=== PATIENT | female | born 1955 | race African-American/Black ===

== ENCOUNTER 2016-11-15 16:17 | Outpatient (CLI) | payer BC ==
[2016-11-15 16:46] LABS: Blood Urea Nitrogen 12 mg/dL (7-17)
--- NOTE | 2016-11-16 08:23 | Magnetic Resonance Report ---
MRI BRAIN WITH/WITHOUT CONTRAST: History: Tinnitus, ringing in right ear. Technique: Multiple T1 and T2 weighted images were obtained in multiple planes. Axial diffusion and gradient imaging was performed. Post contrast T1 images in two planes were obtained following IV gadolinium. Findings: No comparison at this facility. 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 There is moderate crowding at the foramen magnum. This is consistent with a Chiari 1 malformation. Mild periventricular chronic white matter changes are identified which appear appropriate for this persons age. This is a nonspecific finding but is most likely related to chronic microvascular disease. Otherwise, the brain parenchyma signal intensity and its thompson-white interface are normal on all sequences. No diffusion restriction, hemorrhage, mass effect or extra-axial fluid collection. Ventricular size is normal and symmetric. The basal cisterns are clear. The paranasal sinuses and mastoid air cells are well aerated. Normal flow voids are identified in the appropriate vessels at the [place]. No abnormal enhancement is identified following IV gadolinium. Thin collimation images through the internal auditory canals with and without contrast are within normal limits. No evidence for acoustic neuroma or cerebellopontine angle mass. Impression: Chiari 1 malformation. Mild nonspecific chronic white matter changes which are likely appropriate for this persons age. No evidence for acoustic neuroma or mastoid air cell disease.
== END 2016-11-15 16:18 | disposition home or self-care (01) ==
LOC: MRI 16:17
PROVIDERS: ATTEND Otolaryngology
DX: H93.11 Tinnitus, right ear (principal); H90.5 Unspecified sensorineural hearing loss; R90.82 White matter disease, unspecified; I10 Essential (primary) hypertension
CPT/HCPCS: 36415; 70553; 82565; 84520; A9577

== ENCOUNTER 2017-03-06 05:46 | Inpatient (IN) | payer BC ==
[2017-02-27 11:52] LABS: Basophils % (Auto) 1.3 % (0.0-1.8); Eosinophils % (Auto) 3.3 % (0.0-4.3); Hematocrit 39.8 % (30.3-42.9); Hemoglobin 13.7 gm/dl (10.1-14.3); Mean Corpuscular HGB Conc 34 % (30-34); Mean Corpuscular Hemoglobin 28 pg (28-32); Mean Corpuscular Volume 82 fl (79-97); Platelet Count 378 K/mm3 (140-440); Red Blood Count 4.87 M/mm3 (3.65-5.03); Red Cell Distribution Width 13.6 % (13.2-15.2); White Blood Count 5.2 K/mm3 (4.5-11.0)
--- NOTE | 2017-02-27 11:59 | Anesthesia Consultation ---
Anesthesia Consult and Med Hx Date of service: 02/27/17 - Airway Anesthetic Teeth Evaluation: Good ROM Head & Neck: Adequate Mental/Hyoid Distance: Adequate Mallampati Class: Class II Intubation Access Assessment: Probably Good - Pulmonary Exam CTA: Yes - Cardiac Exam Cardiac Exam: RRR - Pre-Operative Health Status ASA Pre-Surgery Classification: ASA3 Proposed Anesthetic Plan: Epidural, Spinal Nerve Block: adductor canal - Pulmonary Hx Smoking: No Hx Sleep Apnea: No (ABRAM PRE SCREEN LOW RISK) - Cardiovascular System Hx Hypertension: Yes (X 5 YRS) Hx Cardia Arrhythmia: Yes ("palpitations", Hx of PVCs) - Central Nervous System Hx Neuromuscular Disorder: Yes (ringing in right ear, vertigo) Hx Seizures: No CVA: No - Endocrine Hx End Stage Renal Disease: No Hx Cirrhosis: No Hx Non-Insulin Dependent Diabetes: Yes - Other Systems Hx Cancer: No Hx Obesity: Yes
[2017-02-27 12:00] LABS: INR 0.94 (0.87-1.13)
[2017-02-27 12:06] LABS: Chloride 100.7 mmol/L (98-107); Potassium 3.9 mmol/L (3.6-5.0); Sodium 140 mmol/L (137-145)
[2017-02-27 12:07] LABS: Alanine Aminotransferase 14 units/L (7-56); Albumin 4.1 g/dL (3.9-5); Alkaline Phosphatase 97 units/L (35-129); Anion Gap 18 mmol/L; BUN/Creatinine Ratio 20; Blood Urea Nitrogen 10 mg/dL (7-17); Calcium 9.5 mg/dL (8.4-10.2); Carbon Dioxide 25 mmol/L (22-30); Glucose 107 mg/dL (65-100); Total Protein 8.2 g/dL (6.3-8.2)
[~2017-03-06 05:46] MED LIST: DEPO-MEDROL INTRA-ARTI ONE; MARCAINE 0.5% INFILTRATI ONE; MARCAINE-EPI 0.5%-1:200,000 INFILTRATI ONE; MORPHINE IM ONE; NACL 0.9% IR ONE; NACL IRRIGATION ONE; NEOSPORIN GU IR ONE; TORADOL IV ONE; TRANEXAMIC ACID IV ONE; VANCOMYCIN/NS 1 GM/250 ML 1 GM/250 ML BAG IV NR
[2017-03-06] MEDS ORDERED: VERSED IV NR (06:00)
[2017-03-06] MEDS ORDERED: PEPCID PO NR (06:00)
[2017-03-06] MEDS ORDERED: NACL BACTERIOSTATIC INFILTRATI ONE (06:28)
[2017-03-06] MEDS: NACL 0.9% 1000 ML 1,000 ML IV SCH ×2 (06:35→19:53)
[2017-03-06] MEDS ORDERED: DEPO-MEDROL ONE (07:16)
--- NOTE | 2017-03-06 07:16 | Anesthesia Day of Surgery ---
Anesthesia Day of Surgery - Day of Surgery Patient Examined: Yes Patient is NPO: Yes
[2017-03-06] MEDS ORDERED: MARCAINE 0.5% INFILTRATI ONE ×3 (07:17→08:59)
[2017-03-06] MEDS ORDERED: NACL ONE (07:19)
[2017-03-06] MEDS ORDERED: NACL P/F VIAL (10 ML) 10 ML ONE (07:19)
[2017-03-06] MEDS ORDERED: NEOSPORIN GU IR ONE ×2 (07:20→08:29)
[2017-03-06] MEDS ORDERED: TORADOL ONE ×2 (07:21→09:05)
[2017-03-06] MEDS ORDERED: TRANEXAMIC ACID ONE (07:21)
[2017-03-06] MEDS ORDERED: MORPHINE ONE (07:23)
[2017-03-06 07:34] LABS: INR 0.94 (0.87-1.13)
[2017-03-06 07:35] LABS: Partial Thromboplastin Time 42.2 Sec. (24.2-36.6)
[2017-03-06] MEDS ORDERED: NEOSTIGMINE ONE (07:42)
[2017-03-06] MEDS ORDERED: DECADRON ONE ×2 (07:42→07:58)
[2017-03-06] MEDS ORDERED: ZEMURON IV ONE (07:42)
[2017-03-06] MEDS ORDERED: DIPRIVAN 10 MG/ML IV ONE (07:42)
[2017-03-06] MEDS ORDERED: SUBLIMAZE ONE (07:42)
[2017-03-06] MEDS ORDERED: ROBINUL ONE ×2 (07:42)
[2017-03-06] MEDS ORDERED: XYLOCAINE MPF 2% ONE (07:43)
[2017-03-06] MEDS ORDERED: MARCAINE 0.5% 30 ML INFILTRATI ONE ×2 (07:58→08:16)
[2017-03-06] MEDS ORDERED: NACL IRRIGATION ONE (08:16)
[2017-03-06] MEDS ORDERED: NACL 0.9% IR ONE ×2 (08:29→09:01)
[2017-03-06] MEDS ORDERED: DILAUDID ONE (08:44)
[2017-03-06] MEDS ORDERED: TORADOL IV ONE (08:59)
[2017-03-06] MEDS ORDERED: MORPHINE IM ONE (08:59)
[2017-03-06] MEDS ORDERED: DEPO-MEDROL INTRA-ARTI ONE (08:59)
[2017-03-06] MEDS ORDERED: TRANEXAMIC ACID IV ONE (09:00)
[2017-03-06] MEDS ORDERED: NACL 0.9% 1000 ML 1,000 ML ONE (09:10)
[2017-03-06] MEDS ORDERED: SODIUM CHLORIDE FLUSH SYRINGE 10 ML IV PRN (09:18)
[2017-03-06] MEDS ORDERED: PHENERGAN PR PRN (09:18)
[2017-03-06] MEDS ORDERED: MILK OF MAGNESIA PO PRN (09:18)
[2017-03-06] MEDS ORDERED: MORPHINE IV PRN ×2 (09:18)
[2017-03-06] MEDS ORDERED: TORADOL IV PRN (09:18)
--- NOTE | 2017-03-06 09:18 | Short Stay Summary ---
Short Stay Documentation Date of service: 03/06/17 - History H&P: obtained from office - Allergies and Medications Current Medications: Allergies No Known Allergies Allergy (Verified 02/26/17 18:38) Home Medications Medication Instructions Recorded Confirmed Last Taken Type Aspirin [Aspirin BABY CHEW TAB] 81 mg PO DAILY 11/10/14 02/26/17 11/09/14 History 81 mg Lisinopril [Zestril TAB] 20 mg PO BID 11/10/14 02/26/17 11/09/14 History 20 mg Simvastatin [Zocor] 10 mg PO DAILY 11/10/14 02/26/17 11/09/14 History 10 mg Amlodipine Besylate [Norvasc] 2.5 mg PO DAILY 02/26/17 02/26/17 Unknown History Meclizine [Antivert] 25 mg PO TID PRN 02/26/17 02/26/17 Unknown History metFORMIN [Glucophage] 500 mg PO QDAY 02/26/17 02/26/17 Unknown History Active Medications Famotidine (Pepcid) 20 mg PO PREOP NR Stop: 03/06/17 23:59 Last Admin: 03/06/17 07:00 Dose: 20 mg Hydromorphone HCl (Dilaudid) 0.5 mg IV Q10MIN PRN PRN Reason: Severe Pain Stop: 03/06/17 12:30 Sodium Chloride (Nacl 0.9% 1000 Ml) 1,000 mls @ 75 mls/hr IV DIRECT KATIUSKA Last Admin: 03/06/17 06:35 Dose: 75 mls/hr Vancomycin HCl (Vancomycin/Ns 1 Gm/250 Ml) 1 gm in 250 mls @ 166.667 mls/hr IV PREOP NR PRN Reason: Protocol Stop: 03/06/17 23:00 Last Admin: 03/06/17 07:10 Dose: 166.667 mls/hr Midazolam HCl (Versed) 2 mg IV PREOP NR Stop: 03/06/17 23:59 Last Admin: 03/06/17 07:26 Dose: 2 mg Ondansetron HCl (Zofran) 4 mg IV ONCE PRN PRN Reason: Nausea And Vomiting Stop: 03/06/17 13:00 - Brief post op/procedure progress note Date of procedure: 03/06/17 Pre-op diagnosis: djd rt knee Post-op diagnosis: same Procedure: Right Total knee arthroplasty complete synovectomy knee Anesthesia: GETA Findings: severe arthritis and synovitis Surgeon: LINDA VICTOR Horse Riding Coach Or Instructor: PHILLIP MARROQUIN Estimated blood loss: none Pathology: none Specimen disposition: discarded Short Stay Discharge Plan Follow up with: PRIMARY CARE, [Primary Care Provider] - 7 Days
[2017-03-06] MEDS ORDERED: ANTIVERT PO PRN (09:23)
[2017-03-06] MEDS ORDERED: APRESOLINE ONE (09:29)
[2017-03-06] MEDS ORDERED: DILAUDID IV PRN (09:30)
[2017-03-06] MEDS ORDERED: ZOFRAN IV PRN ×2 (09:30→16:22)
[2017-03-06] MEDS ORDERED: DULCOLAX PR PRN (10:00)
[2017-03-06] MEDS ORDERED: NON-FORMULARY (Amlodipine Besylate [Norvasc] 2.5 MG) PO SCH (10:00)
[2017-03-06] MEDS ORDERED: BABY ASPIRIN PO SCH (10:00)
[2017-03-06] MEDS ORDERED: D5NS 1,000 ML IV SCH (10:00)
[2017-03-06] MEDS ORDERED: TYLENOL PO PRN (10:00)
[2017-03-06] MEDS ORDERED: APRESOLINE IV ONE (10:00)
--- NOTE | 2017-03-06 10:21 | Post Anesthesia Evaluation ---
- Post Anesthesia Evaluation Patient Participated: Yes Airway Patent: Yes Stable Respiratory Function: Yes Nausea/Vomiting: No Temp > 96.8F: Yes Pain Manageable: Yes Adequeate Hydration: Yes Anesthesia Complications: No Block Receding Appropriately: Not Applicable Patient on Ventilator: No
--- NOTE | 2017-03-06 11:08 | Operative Report ---
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 POSTOPERATIVE DIAGNOSES: Osteoarthritis and chronic severe synovitis of the right knee. PROCEDURE: Right total knee replacement arthroplasty. IMPLANTS: Biomet components. SURGEON: Zhane Johnson MD MACHINE CLOTH MEASURER: Radha Petty RN ANESTHESIA: General. COMPLICATIONS: None. FINDINGS: The patient was found to have severe chronic synovitis of the knee joint and severe destruction of the joint. PROCEDURE IN DETAIL: Once the patient was in surgical room, a time-out was carried out to identify the patient and procedure, prepping and draping of the patient in the usual fashion. Procedure was carried out by making a 10 cm incision into a straight midline in front of the knee joint. Dissection was carried out through the subcutaneous tissue. This was carried out to allow full exposure of the patella and the medial aspect of the joint. A medial parapatellar incision was carried out with a vastus extension. Once the flaps were developed, a complete synovectomy of the knee was carried out by separation of the synovial pouch from the superior aspect of the knee. This dissection was carried down sharply and bluntly to allow for separation and removal of the complete synovial pouch. This was carried out to the right and left of the midline. Appropriate releases were then carried out and the knee was placed in flexion. The patella was everted and dropped to the side. Once this was done, the procedure was continued using the Biomet instrumentation. The femur was cut using the intramedullary guide and the tibia was cut using the extramedullary guide. This was done without any problems. A small mini femoral component was used secondary to the small size of the knee. Once this was carried out, a laminar corn grinder was carried out center of joint to be able to clean out and finish out the synovectomy and the posterior gutters. While this was done, the knee was infiltrated with Marcaine without epinephrine in fashion. Once this was done, the procedure was continued by the preparation of the knee and selection of the tibial bearing. Once this was done, the components were inserted with acrylic cement, fixation of the component was done without any problems. The knee was assembled and the knee was placed in full range of motion and the joint was found to be stable. It was still continued by closure of the knee after irrigation of the knee with tranexamic acid, the knee was closed with #1 Vicryl, #2-0 Vicryl, and skin clips. A compression bandage was applied. The patient tolerated the procedure well. There were no complications. The patient was taken to recovery room and doing well. JOB# [id number] KLEBER/MAHAD
[2017-03-06] MEDS: ANCEF/NS 1 GM/50 ML 1 GM/50 ML BAG IV SCH ×2 (12:40→19:54)
[2017-03-06] MEDS: GLUCOPHAGE PO SCH (12:41)
[2017-03-06] MEDS: ASPIRIN PO SCH ×2 (12:41→23:05)
[2017-03-06] MEDS: ZOCOR PO SCH (12:41)
--- NOTE | 2017-03-06 23:22 | Consultation ---
History of Present Illness - Reason for Consult Consult date: 03/06/17 Medical management Requesting physician: LINDA VICTOR - History of Present Illness S/p Rt TKA-post op doing well Past History Past Medical History: diabetes, hypertension, hyperlipidemia Past Surgical History: total knee replacement Social history: no significant social history, lives with family Family history: hypertension Medications and Allergies Allergies Allergy/AdvReac Type Severity Reaction Status Date / Time No Known Allergies Allergy Verified 02/26/17 18:38 Home Medications Medication Instructions Recorded Confirmed Last Taken Type Aspirin [Aspirin BABY CHEW TAB] 81 mg PO DAILY 11/10/14 02/26/17 11/09/14 History 81 mg Lisinopril [Zestril TAB] 20 mg PO BID 11/10/14 02/26/17 11/09/14 History 20 mg Simvastatin [Zocor] 10 mg PO DAILY 11/10/14 02/26/17 11/09/14 History 10 mg Amlodipine Besylate [Norvasc] 2.5 mg PO DAILY 02/26/17 02/26/17 Unknown History Meclizine [Antivert] 25 mg PO TID PRN 02/26/17 02/26/17 Unknown History metFORMIN [Glucophage] 500 mg PO QDAY 02/26/17 02/26/17 Unknown History Active Meds: Active Medications Acetaminophen (Tylenol) 650 mg PO Q4H PRN PRN Reason: Pain MILD(1-3)/Fever >100.5/AQUINO Acetaminophen/Hydrocodone Bitart ([place] 5/325) 1 each PO Q6H PRN PRN Reason: Pain, Moderate (4-6) Amlodipine Besylate (Norvasc) 2.5 mg PO QDAY [facility] Aspirin (Aspirin) 325 mg PO BID [facility] Last Admin: 03/06/17 23:05 Dose: 325 mg Bisacodyl (Dulcolax) 10 mg [place] QDAY PRN PRN Reason: Constip unreliev by MOM/or NPO Celecoxib (Celebrex) 100 mg PO BID [facility] Last Admin: 03/06/17 23:11 Dose: 100 mg Famotidine (Pepcid) 20 mg PO PREOP NR Stop: 03/06/17 23:59 Last Admin: 03/06/17 07:00 Dose: 20 mg Sodium Chloride (Nacl 0.9% 1000 Ml) 1,000 mls @ 75 mls/hr IV DIRECT [facility] Last Admin: 03/06/17 19:53 Dose: 75 mls/hr Dextrose/Sodium Chloride (D5ns) 1,000 mls @ 100 mls/hr IV DIRECT KATIUSKA Ketorolac Tromethamine (Toradol) 15 mg IV Q6H PRN PRN Reason: Pain, Mild (1-3) Stop: 03/11/17 09:17 Last Admin: 03/06/17 23:05 Dose: 15 mg Magnesium Hydroxide (Milk Of Magnesia) 30 ml PO Q4H PRN PRN Reason: Constipation Meclizine HCl (Antivert) 25 mg PO TID PRN PRN Reason: Vertigo Metformin HCl (Glucophage) 500 mg PO QDAY [facility] Last Admin: 03/06/17 12:41 Dose: 500 mg Midazolam HCl (Versed) 2 mg IV PREOP NR Stop: 03/06/17 23:59 Last Admin: 03/06/17 07:26 Dose: 2 mg Morphine Sulfate (Morphine) 2 mg IV Q4H PRN PRN Reason: Pain, Moderate (4-6) Morphine Sulfate (Morphine) 4 mg IV Q4H PRN PRN Reason: Pain , Severe (7-10) Ondansetron HCl (Zofran) 4 mg IV Q4H PRN PRN Reason: Nausea And Vomiting Last Admin: 03/06/17 18:05 Dose: 4 mg Promethazine HCl (Phenergan) 25 mg OK Q6H PRN PRN Reason: Nausea And Vomiting Simvastatin (Zocor) 10 mg PO DAILY [facility] Last Admin: 03/06/17 12:41 Dose: 10 mg Sodium Chloride (Sodium Chloride Flush Syringe 10 Ml) 10 ml IV PRN PRN PRN Reason: LINE FLUSH Review of Systems All systems: negative Exam - Constitutional Vitals: Temp Pulse Resp BP Pulse Ox 98.1 F 102 H 20 149/94 98 03/06/17 20:32 03/06/17 20:32 03/06/17 20:32 03/06/17 20:32 03/06/17 20:04 General appearance: Present: no acute distress, well-nourished - EENT Eyes: Present: PERRL ENT: hearing intact, clear oral mucosa - Neck Neck: Present: supple, normal ROM - Respiratory Respiratory effort: normal Respiratory: bilateral: CTA - Cardiovascular Heart Sounds: Present: S1 & S2. Absent: rub, click - Extremities Extremities: pulses symmetrical, No edema Peripheral Pulses: within normal limits - Abdominal General gastrointestinal: Present: soft, non-tender, non-distended, normal bowel sounds Female genitourinary: Present: normal - Integumentary Integumentary: Present: clear, warm, dry - Musculoskeletal Musculoskeletal: gait normal, strength equal bilaterally - Psychiatric Psychiatric: appropriate mood/affect, intact judgment & insight - Neurologic Neurologic: CNII-XII intact, moves all extremities Results - Labs CBC & Chem 7: 02/27/17 11:20 02/27/17 11:20 Labs: Abnormal lab results 03/06/17 03/06/17 03/06/17 Range/Units 06:45 06:50 09:37 APTT 42.2 H (24.2-36.6) Sec. POC Glucose 108 H 154 H (70-105) 03/06/17 Range/Units 17:18 APTT (24.2-36.6) Sec. POC Glucose 154 H (70-105) Assessment and Plan - Patient Problems (1) HTN (hypertension) Current Visit: Yes Status: Chronic Qualifiers: Hypertension type: essential hypertension Qualified Code(s): I10 - Essential (primary) hypertension Plan to address problem: Cont anti hypertensives (2) HLD (hyperlipidemia) Current Visit: Yes Status: Chronic Qualifiers: Hyperlipidemia type: mixed hyperlipidemia Qualified Code(s): E78.2 - Mixed hyperlipidemia Plan to address problem: Cont statins (3) Diabetes Current Visit: Yes Status: Chronic Qualifiers: Diabetes mellitus type: type 2 Diabetes mellitus complication status: without complication Diabetes mellitus complication detail: D Diabetic retinopathy severity: D Proliferative retinopathy type: P Diabetes mellitus macular edema: D Diabetes mellitus emt intermediate insulin use: D Laterality: L Chronic kidney disease stage: C Plan to address problem: Cont coverage and Metformin (4) History of total knee arthroplasty Current Visit: Yes Status: Acute Qualifiers: Laterality: right Qualified Code(s): Z96.651 - Presence of right artificial knee joint Plan to address problem: Post op doing well. (5) DVT prophylaxis Current Visit: Yes Status: Acute Plan to address problem: On scd's
[2017-03-07] MEDS: NORCO 5/325 PO PRN ×2 (06:56→13:22)
--- NOTE | 2017-03-07 06:58 | Progress Note ---
Assessment and Plan lert orientated in NAD Chest clear soft abdomen Neuro intact, OOB today, DC home Subjective Date of service: 03/07/17 Objective Vital signs: Vital Signs - 12hr 03/06/17 03/06/17 03/06/17 20:03 20:04 20:32 Temperature 98.1 F 98.1 F Pulse Rate 106 H 102 H 102 H Respiratory 20 20 Rate Blood Pressure Blood Pressure 149/94 [Left] O2 Sat by Pulse 99 98 Oximetry 03/07/17 03/07/17 03/07/17 00:24 00:25 04:47 Temperature 98.4 F 98.2 F Pulse Rate 69 68 67 Respiratory 17 18 Rate Blood Pressure 167/82 167/82 152/76 Blood Pressure [Left] O2 Sat by Pulse 98 98 97 Oximetry 03/07/17 04:48 Temperature Pulse Rate 63 Respiratory Rate Blood Pressure Blood Pressure [Left] O2 Sat by Pulse 98 Oximetry - Labs CBC & BMP: 02/27/17 11:20 02/27/17 11:20 Labs: Abnormal lab results 03/06/17 03/06/17 03/06/17 Range/Units 06:50 09:37 17:18 APTT 42.2 H (24.2-36.6) Sec. POC Glucose 154 H 154 H (70-105)
[2017-03-07] MEDS: GLUCOPHAGE PO SCH (08:53)
[2017-03-07] MEDS: ASPIRIN PO SCH (08:53)
[2017-03-07] MEDS: ZOCOR PO SCH (08:53)
[2017-03-07] MEDS ORDERED: ZESTRIL PO SCH (10:00)
[2017-03-07] MEDS ORDERED: NORVASC PO SCH (10:00)
--- NOTE | 2017-03-07 10:05 | Progress Note ---
Assessment and Plan Assessment and plan: [employer] for postop medical management of hypertension and diabetes -Hypertension, stable: Resume home medication once discharged -Type 2 diabetes mellitus: Home medication once discharged, change current diet to ADA cardiac, stop dextrose with IV fluid -Status post right knee replacement: Per orthopedic surgery management including DVT prophylaxis -Dyslipidemia: Continue home medication No objection for discharge History Interval history: Patient was seen and examined. Follow-up on current diagnosis/htn,dm. Overnight uneventful. Patient denies any chest pain, shortness breath, nausea/ vomiting or severe headaches. Imaging, nursing note, chart, labs and old chart reviewed. Discussed with patient. Hospitalist Physical - Physical exam Narrative exam: GEN: WDWN, NAD, AWAKE, ALERT, ORIENTATED HEENT: NCAT, EOMI, PERRL, OP Clear NECK: supple, no adenopathy, no thyromegaly, no JVD CVS/HEART: RRR, NORMAL S1S2, NO JVD, pulses present bilaterally CHEST/LUNGS: CTA B, Symmetrical chest expansion, good air entry bilaterally GI/Abdomen: soft, NTND, good bowel sounds, no guarding or rebound /Bladder: no suprapubic tenderness, no CVA or paraspinal tenderness EXT/Skin: Right knee dressing clean dry and intact MSK: Limited range of motion of the right knee Neuro: CN 2-12 grossly intact, no new focal deficits Psych: calm - Constitutional Vitals: Temp Pulse Resp BP Pulse Ox 98 F 84 18 163/90 97 03/07/17 08:00 03/07/17 08:00 03/07/17 08:00 03/07/17 08:00 03/07/17 08:00 General appearance: Present: no acute distress, well-nourished Results - Labs CBC & Chem 7: 02/27/17 11:20 02/27/17 11:20 Labs: Laboratory Last Values WBC 5.2 K/mm3 (4.5-11.0) 02/27/17 11:20 RBC 4.87 M/mm3 (3.65-5.03) 02/27/17 11:20 Hgb 13.7 gm/dl (10.1-14.3) 02/27/17 11:20 Hct 39.8 % (30.3-42.9) 02/27/17 11:20 MCV 82 fl (79-97) 02/27/17 11:20 MCH 28 pg (28-32) 02/27/17 11:20 MCHC 34 % (30-34) 02/27/17 11:20 RDW 13.6 % (13.2-15.2) 02/27/17 11:20 Plt Count 378 K/mm3 (140-440) 02/27/17 11:20 Lymph % (Auto) 22.7 % (13.4-35.0) 02/27/17 11:20 Lewis % (Auto) 6.9 % (0.0-7.3) 02/27/17 11:20 Eos % (Auto) 3.3 % (0.0-4.3) 02/27/17 11:20 Baso % (Auto) 1.3 % (0.0-1.8) 02/27/17 11:20 Lymph # 1.2 K/mm3 (1.2-5.4) 02/27/17 11:20 Lewis # 0.4 K/mm3 (0.0-0.8) 02/27/17 11:20 Eos # 0.2 K/mm3 (0.0-0.4) 02/27/17 11:20 Baso # 0.1 K/mm3 (0.0-0.1) 02/27/17 11:20 Seg Neutrophils % 65.8 % (40.0-70.0) 02/27/17 11:20 Seg Neutrophils # 3.4 K/mm3 (1.8-7.7) 02/27/17 11:20 PT 13.1 Sec. (12.2-14.9) 03/06/17 06:50 INR 0.94 (0.87-1.13) 03/06/17 06:50 APTT 42.2 Sec. (24.2-36.6) H 03/06/17 06:50 Sodium 140 mmol/L (137-145) 02/27/17 11:20 Potassium 3.9 mmol/L (3.6-5.0) 02/27/17 11:20 Chloride 100.7 mmol/L (98-107) 02/27/17 11:20 Carbon Dioxide 25 mmol/L (22-30) 02/27/17 11:20 Anion Gap 18 mmol/L 02/27/17 11:20 BUN 10 mg/dL (7-17) 02/27/17 11:20 Creatinine 0.5 mg/dL (0.7-1.2) L 02/27/17 11:20 Estimated GFR > 60 ml/min 02/27/17 11:20 BUN/Creatinine Ratio 20 % 02/27/17 11:20 Glucose 107 mg/dL (65-100) H 02/27/17 11:20 POC Glucose 154 (70-105) H 03/06/17 17:18 Calcium 9.5 mg/dL (8.4-10.2) 02/27/17 11:20 Total Bilirubin 0.50 mg/dL (0.1-1.2) 02/27/17 11:20 AST 17 units/L (5-40) 02/27/17 11:20 ALT 14 units/L (7-56) 02/27/17 11:20 Alkaline Phosphatase 97 units/L (35-129) 02/27/17 11:20 Total Protein 8.2 g/dL (6.3-8.2) 02/27/17 11:20 Albumin 4.1 g/dL (3.9-5) 02/27/17 11:20 Albumin/Globulin Ratio 1.0 % 02/27/17 11:20
[2017-03-07 14:17] VITALS: BP 145/76
[2017-03-07] MEDS ORDERED: PRAVACHOL PO SCH (22:00)
== END 2017-03-07 15:00 | disposition home health service (06) | DRG 470 ==
LOC: 3A 05:46 → 3B-SURG 10:37
PROC: 0SRC0J9 Replacement of Right Knee Joint with Synthetic Substitute, Cemented, Open Approach (ICD-10-PCS; principal; 2017-03-06)
DX: M17.11 Unilateral primary osteoarthritis, right knee (principal); M65.9 Synovitis and tenosynovitis, unspecified; E11.9 Type 2 diabetes mellitus without complications; I10 Essential (primary) hypertension; E78.5 Hyperlipidemia, unspecified; Z82.49 Family history of ischemic heart disease and other diseases of the circulatory system; Z79.82 Long term (current) use of aspirin; Z79.899 Other long term (current) drug therapy; Z79.84 Long term (current) use of oral hypoglycemic drugs
CPT/HCPCS: 36415; 80053; 82962; 85025; 85610; 85730; 88304; 88311; 93005; 93010; A4217; C1713; C1776; J0360; J0690; J1030; J1100; J1170; J1885; J2250; J2270; J2405; J2704; J2710; J3010; J3370; J7030; J7042

== ENCOUNTER 2018-05-02 12:50 | Outpatient (CLI) | payer BC ==
--- NOTE | 2018-05-02 14:55 | Mammography Report ---
BILATERAL DIGITAL DIAGNOSTIC MAMMOGRAM with CAD and RIGHT BREAST ULTRASOUND: 05/02/18 CLINICAL: Right breast lump. COMPARISON:None. FINDINGS: The breasts are mostly fatty with a few bilateral residual retroareolar fibroglandular densities.A spiculated irregular right retroareolar breast mass measures approximately 3.5 x 3.2 x 2.9 cm. There is associated nipple retraction. No other mass and no suspicious calcifications.The left breast is negative. Ultrasound of the right breast (including all four quadrants and the retroareolar area) was performed. An irregular solid hypoechoic mass at 12 o'clock 2 cm from the nipple measures 3.6 x 2.0 x 3.0 cm and correlates with the mammographic mass. No other mass. Ultrasound of the right axilla demonstrates 2 small lymph nodes with central fat and benign morphology. The larger lymph node measures 1.2 cm. No suspicious lymph nodes. IMPRESSION: A highly suspicious 3.6 cm right breast mass at 12 o'clock 2 cm from the nipple. No suspicious lymph nodes. Negative left breast. BI-RADS CATEGORY: 5 - - Highly Suggestive of Malignancy RECOMMENDATION: Ultrasound guided needle biopsy of the right breast. I discussed the findings and the recommendation for needle core biopsy with the patient at the time of the examination. ACR BI-RADS MAMMOGRAPHIC CODES: 0 = Needs additional imaging evaluation; 1 = Negative; 2 = Benign; 3 = Probably benign; 4 = Suspicious; 5 = Malignant; 6 = Known biopsy-proven malignancy COMMENT: 1. Dense breast tissue, i.e., adenosis, fibrocystic changes, etc., may obscure an underlying neoplasm. 2. Approximately 10% of cancers are not detected with mammography. 3. A negative mammography report should not delay biopsy if a clinically suspicious mass is present. COMMENT: Patient follow-up letters are generated by our [employer] application.
== END 2018-05-02 12:51 | disposition home or self-care (01) ==
LOC: MAMMO 12:50
DX: N63.10 Unspecified lump in the right breast, unspecified quadrant (principal); I10 Essential (primary) hypertension; E78.5 Hyperlipidemia, unspecified; E11.9 Type 2 diabetes mellitus without complications; E66.9 Obesity, unspecified; E78.00 Pure hypercholesterolemia, unspecified; Z90.49 Acquired absence of other specified parts of digestive tract
CPT/HCPCS: 77066

== ENCOUNTER 2018-05-15 08:39 | Outpatient (CLI) | payer BC ==
--- NOTE | 2018-05-15 10:13 | Mammography Report ---
RIGHT DIGITAL DIAGNOSTIC MAMMOGRAM: 05/15/18 08:39:00 CLINICAL: For clip placement immediately status post ultrasound biopsy. COMPARISON:05/02/18 mammogram FINDINGS: A biopsy clip is now identified within the mass at 12 o'clock. IMPRESSION: Concordant clip placement status post ultrasound biopsy. BI-RADS CATEGORY: 5 - - Highly Suggestive of Malignancy Pathology pending.
--- NOTE | 2018-05-15 10:20 | Ultrasound Report ---
ULTRASOUND GUIDED NEEDLE CORE BIOPSY RIGHT BREAST WITH CLIP PLACEMENT: 05/15/18 CLINICAL: Right breast mass at 12:00 o'clock COMPARISON :05/02/18 FINDINGS: The procedure was explained to the patient and informed consent was obtained. Ultrasound demonstrated the previously described solid irregular hypoechoic mass at 12 o'clock 2 cm from the nipple.. I marked the breast with a felt tip marker and a time out was called. The skin was prepped with Betadine and anesthetized with 1% lidocaine. Needle core biopsy was performed through a tiny dermatotomy using ultrasound guidance, 2% lidocaine with epinephrine for deep anesthesia and a 14-gauge Achieve biopsy device. 3 cores were obtained and placed in formalin. A clip was deployed within the mass. The patient tolerated the procedure well and there were no apparent complications. Hemostasis was achieved with minimal pressure and a sterile dressing was applied. A two view mammogram demonstrated concurrent deployment of the clip. She left the department in good condition and was given instructions for wound care and followup. IMPRESSION: Uncomplicated ultrasound guided needle core biopsy with clip placement right breast.
== END 2018-05-15 08:40 | disposition home or self-care (01) ==
LOC: SPVWC 08:39
PROVIDERS: ATTEND Internal Medicine
DX: C50.911 Malignant neoplasm of unspecified site of right female breast (principal); I10 Essential (primary) hypertension; E78.5 Hyperlipidemia, unspecified; E11.9 Type 2 diabetes mellitus without complications; Z79.899 Other long term (current) drug therapy; Z79.01 Long term (current) use of anticoagulants; Z79.82 Long term (current) use of aspirin; Z79.84 Long term (current) use of oral hypoglycemic drugs; Z90.49 Acquired absence of other specified parts of digestive tract; Z96.659 Presence of unspecified artificial knee joint
CPT/HCPCS: 88305; 88341; 88342; 88361; 88368

== ENCOUNTER 2018-06-04 13:29 | Outpatient (CLI) | payer BC ==
[2018-06-04 15:07] LABS: Blood Urea Nitrogen 15 mg/dL (7-17)
--- NOTE | 2018-07-02 16:37 | Magnetic Resonance Report ---
FINAL REPORT Bilateral Breast MRI with and without contrast History: Newly diagnosed right breast malignancy Technique: Axial T1, axial and sagittal T2, axial dynamic imaging before and after 15 cc MultiHance a dministration. Comparisons: Bilateral mammogram and right breast ultrasound dated 05/02/2018. Right breast ultrasou nd biopsy and post biopsy images dated 05/15/2018. Breast composition: Heterogeneously dense. Background parenchymal enhancement: Moderate Findings: Right breast: A micro clip is identified at the superior aspect of a 3.6 x 3.2 cm irregular enhancing mass in the right 12 o'clock breast consistent with biopsy-proven malignancy. This mass extends up t o the nipple and causes nipple inversion. Extension into the nipple cannot be excluded. No other susp icious enhancement is seen in the right breast. Mildly prominent right axillary lymph nodes are ident ified and metastatic involvement is a consideration. Left breast: A non specific chain of linear rim enhancing subcentimeter masses extend from the nipple posteriorly in the left 12 o'clock breast for distance of 5 centimeters posteriorly. Before definiti ve management of the right breast mass, second-look ultrasound should be performed in this area on th e left side. Any biopsies of abnormal masses should be performed. If no suspicious finding is seen on second-look ultrasound, a six-month follow-up breast MRI should be performed. The skin, nipple and p ectoralis appear normal on the left side. The left axillary lymph nodes show no suspicious finding. Impression: Known biopsy proven malignancy (BI-RADS 6) Recommendation: 1. Second-look ultrasound of the left 12 o'clock breast extending from the nipple posteriorly for a d istance of 5 cm is recommended for the linear chain of rim enhancing masses. If no biopsy is performe d on the left side, a six-month follow-up breast MRI should be performed. 2. Definitive management for right biopsy-proven malignancy.
== END 2018-06-04 13:30 | disposition home or self-care (01) ==
LOC: SPVIMAG 13:29
PROVIDERS: ATTEND Surgery
DX: C50.411 Malignant neoplasm of upper-outer quadrant of right female breast (principal); I10 Essential (primary) hypertension; E78.5 Hyperlipidemia, unspecified; E11.9 Type 2 diabetes mellitus without complications; E78.00 Pure hypercholesterolemia, unspecified; E66.9 Obesity, unspecified; Z90.49 Acquired absence of other specified parts of digestive tract
CPT/HCPCS: 36415; 82565; 84520; A9577; C8908; 77049

== ENCOUNTER 2018-06-13 07:59 | Outpatient (CLI) | payer BC ==
--- NOTE | 2018-06-13 11:25 | Ultrasound Report ---
ULTRASOUND GUIDED NEEDLE CORE BIOPSY OF A RIGHT AXILLARY LYMPH NODE WITH CLIP PLACEMENT : 06/13/18 07:59:00 CLINICAL: Recently diagnosed right breast cancer and a suspicious right axillary lymph node. COMPARISON :05/02/18 FINDINGS: The procedure was explained to the patient and informed consent was obtained. Ultrasound demonstrated a suspicious lymph node with focal cortical thickening. The skin in the axilla was prepped with Betadine and anesthetized with 1% lidocaine. Ultrasound guided needle core biopsy of the lymph node was performed through a small dermatotomy using 2% lidocaine with epinephrine for deep anesthesia and a 18-gauge Achieve biopsy device. 2 samples were obtained and placed in formalin. A clip was deployed within the lymph node. Hemostasis was achieved with minimal pressure and a sterile dressing was applied. The patient tolerated the procedure well and there were no apparent complications. She was discharged in good condition and was given instructions for wound care and followup. IMPRESSION: Uncomplicated ultrasound-guided needle core biopsy of a right axillary lymph node with clip placement.
--- NOTE | 2018-06-13 11:33 | Ultrasound Report ---
TARGETED LEFT BREAST ULTRASOUND: 06/13/18 07:59:00 CLINICAL: Newly diagnosed right breast cancer and subcentimeter enhancing masses at 12 o'clock in the left breast by MRI. COMPARISON: 06/04/17 MRI Breast FINDINGS: Ultrasoundof the upper left breast was performed and demonstrated no solid mass or shadowing. A benign cyst at 12 o'clock 4 cm from the nipple measures 4 x 3 x 1 mm. IMPRESSION: A benign cyst at 12 o'clock but no solid mass to correlate with MRI findings. BI-RADS 2 - - Benign RECOMMENDATION: 6 month followup breast MRI.
== END 2018-06-13 08:00 | disposition home or self-care (01) ==
LOC: SPVWC 07:59
PROVIDERS: ATTEND Surgery
DX: D36.0 Benign neoplasm of lymph nodes (principal); N63.21 Unspecified lump in the left breast, upper outer quadrant; C50.911 Malignant neoplasm of unspecified site of right female breast; I10 Essential (primary) hypertension; E78.5 Hyperlipidemia, unspecified; E11.9 Type 2 diabetes mellitus without complications; E78.00 Pure hypercholesterolemia, unspecified; E66.9 Obesity, unspecified; Z79.84 Long term (current) use of oral hypoglycemic drugs; Z79.82 Long term (current) use of aspirin; Z90.49 Acquired absence of other specified parts of digestive tract; Z79.01 Long term (current) use of anticoagulants
CPT/HCPCS: 38505; 76642; 76942; 88305; A4648

== ENCOUNTER 2018-07-10 12:40 | Outpatient (CLI) | payer BC ==
[2018-07-10 13:16] LABS: Basophils % (Auto) 1.1 % (0.0-1.8); Eosinophils # (Auto) 0.1 K/mm3 (0.0-0.4); Eosinophils % (Auto) 2.1 % (0.0-4.3); Hemoglobin 13.8 gm/dl (10.1-14.3); Lymphocytes % (Auto) 24.4 % (13.4-35.0); Monocytes # (Auto) 0.4 K/mm3 (0.0-0.8); Monocytes % (Auto) 8.4 % (0.0-7.3)
[2018-07-10 13:30] LABS: Hematocrit 42.3 % (30.3-42.9); Mean Corpuscular HGB Conc 33 % (30-34); Mean Corpuscular Volume 85 fl (79-97); Platelet Count 337 K/mm3 (140-440); Red Blood Count 4.99 M/mm3 (3.65-5.03); Red Cell Distribution Width 13.5 % (13.2-15.2)
--- NOTE | 2018-07-10 13:42 | XRay Report ---
Single view chest: History: Encounter for the procedure and exam. Findings: Normal cardiomediastinal silhouette. Trachea is midline. No consolidation, pneumothorax or pleural effusion. Impression: No acute cardiopulmonary findings.
[2018-07-10 13:47] LABS: Alanine Aminotransferase 14 units/L (7-56); Albumin 4.3 g/dL (3.9-5); BUN/Creatinine Ratio 19; Blood Urea Nitrogen 15 mg/dL (7-17); Calcium 9.7 mg/dL (8.4-10.2); Hemolysis Index 10
== END 2018-07-10 12:41 | disposition home or self-care (01) ==
LOC: CARD 12:40
PROVIDERS: ATTEND Internal Medicine
DX: Z01.818 Encounter for other preprocedural examination (principal); R00.1 Bradycardia, unspecified; I10 Essential (primary) hypertension; E11.9 Type 2 diabetes mellitus without complications; E78.5 Hyperlipidemia, unspecified; R94.31 Abnormal electrocardiogram [ECG] [EKG]; E66.9 Obesity, unspecified; E78.00 Pure hypercholesterolemia, unspecified; Z90.49 Acquired absence of other specified parts of digestive tract
CPT/HCPCS: 36415; 71046; 80053; 85025; 93005; 93010

== ENCOUNTER 2018-08-28 05:51 | Day surgery (SDC) | payer BC ==
[2018-08-28] MEDS ORDERED: LACTATED RINGERS 1,000 ML IV SCH (06:30)
[2018-08-28] MEDS ORDERED: NACL BACTERIOSTATIC INFILTRATI ONE (06:40)
[2018-08-28] MEDS ORDERED: DIPRIVAN 10 MG/ML IV ONE (07:06)
[2018-08-28] MEDS ORDERED: XYLOCAINE MPF 2% ONE (07:06)
[2018-08-28] MEDS ORDERED: SUBLIMAZE ONE (07:06)
[2018-08-28] MEDS ORDERED: TRANSDERM-SCOP TD ONE (07:30)
[2018-08-28] MEDS ORDERED: VERSED ONE (07:30)
[2018-08-28] MEDS ORDERED: ANCEF/STERILE WATER 2 GM/20 ML 2 GM/20 ML SYRINGE IV ONE (07:34)
[2018-08-28] MEDS ORDERED: NACL 0.9% IR ONE (07:35)
[2018-08-28] MEDS ORDERED: NACL 0.9% IV ONE (07:35)
[2018-08-28] MEDS ORDERED: HEPARIN 10,000 UNITS/10 ML IV ONE (07:35)
[2018-08-28] MEDS ORDERED: ZOFRAN ONE (08:16)
[2018-08-28] MEDS ORDERED: TORADOL ONE (08:24)
--- NOTE | 2018-08-28 08:50 | Short Stay Summary ---
Short Stay Documentation Date of service: 08/28/18 - History Principal diagnosis: BREAST CANCER RIGHT H&P: obtained from office - Allergies and Medications Current Medications: Allergies atenolol Adverse Reaction (Verified 07/16/18 15:17) Headache, Pressure hydrochlorothiazide Adverse Reaction (Verified 07/16/18 15:17) Dizziness, Increased Blood Pressure Home Medications Medication Instructions Recorded Confirmed Last Taken Type Aspirin [Aspirin BABY CHEW TAB] 81 mg PO DAILY 11/10/14 08/28/18 08/26/18 History Lisinopril [Zestril TAB] 20 mg PO BID 11/10/14 08/28/18 08/27/18 History Amlodipine Besylate [Norvasc] 2.5 mg PO DAILY 02/26/17 08/28/18 08/28/18 History Meclizine [Antivert] 25 mg PO TID PRN 02/26/17 08/27/18 07/23/18 History metFORMIN [Glucophage] 500 mg PO QDAY 02/26/17 08/28/18 08/27/18 History Simvastatin 20 mg PO DAILY 07/16/18 08/28/18 08/27/18 History Active Medications Lactated Ringer's (Lactated Ringers) 1,000 mls @ 100 mls/hr IV DIRECT KATISUKA Stop: 08/28/18 23:59 - Brief post op/procedure progress note Date of procedure: 08/28/18 Pre-op diagnosis: right breast cancer Post-op diagnosis: same Procedure: left subclavian port a cath placement with ultrasound guidance, fluoroscopy Anesthesia: GETA, local Findings: good placement of port on post of CXR, no PTX Surgeon: DAWSON WICK Estimated blood loss: minimal Pathology: none Condition: stable - Hospital course Hospital course: Pt observed in PACU and discharged to home in stable condition. - Disposition Condition at discharge: Good Disposition: DC-01 TO HOME OR SELFCARE Short Stay Discharge Plan Activity: no restrictions Diet: regular Wound: open to air, per your surgeon's advice Additional Instructions: SEE PRINTED DISCHARGE INSTRUCTIONS Follow up with: GREGORY DESIR MD [Primary Care Provider] - 7 Days DAWSON WICK DO [Staff Physician] - 14 Days Prescriptions: Ibuprofen 800 mg PO Q8H PRN #30 tablet PRN Reason: Pain , Severe (7-10)
--- NOTE | 2018-08-28 09:19 | Fluoroscopy Report ---
FLUOROSCOPY CENTRAL VENOUS DEVICE PLACEMENT History: Breast cancer, insertion of Kkdoxi-w-Isdl. Findings: An AP view of the chest is presented. A left subclavian Hxzjqn-b-Wjqn has been inserted which terminates in the mid right atrium. The lungs are clear. No pneumothorax. Borderline to mild cardiomegaly is noted. The bony structures are grossly intact. Impression: Left Qqpgcs-u-Nlto placement as described. No pneumothorax.
--- NOTE | 2018-08-28 09:37 | Operative Report ---
Operative Report Operative Report: Date of procedure: 08/28/18 Pre-op diagnosis: right breast cancer Post-op diagnosis: same Procedure: left subclavian port a cath placement with ultrasound guidance, fluoroscopy Anesthesia: GETA, local Findings: good placement of port on post of CXR, no PTX Surgeon: DASWON WICK Estimated blood loss: minimal Pathology: none Condition: stable Procedure in detail: The patient was identified in the preoperative area, taken back to operating room, placed on operating table in supine position. After anesthesia was induced both arms were tucked and upper chest and neck were prepped and draped in usual sterile fashion. A timeout was performed. The was placed in Trendelenburg position. Local anesthetic was infiltrated into the skin at the intended puncture site. The LEFT subclavian vein was visualized on ultrasound and one attempt was made at access. The vein was accessed on the first stick. There was return of dark red, nonpulsatile blood. A glidewire was threaded under fluoroscopy without resistance and positioning confirmed. The needle was then removed. Using a 15 blade, an incision was made in the LEFT upper chest and dissection carried down through the skin and subcutaneous tissue using Bovie electrocautery. Hemostasis was achieved along the way. A pocket for the port was then created bluntly and with electrocautery. The catheter was flushed and tunneled from the pocket to the wire. A breakaway catheter/dilator sheath then inserted over the wire under fluoroscopy, and the wire and dilator removed. The catheter was then inserted through the breakaway catheter which was then removed. The catheter sat flush under the skin. Using continuous fluoroscopy, the catheter was pulled back until the tip was visualized in the right atrium. The catheter was then cut to size and the port attached in the usual fashion. The port was then sutured into place to the pre-pectoral fascia using 2-0 Vicryl interrupted sutures. The wound was irrigated and hemostasis ensured. The port was tested with heparinized saline and there was return of blood and it flushed easily. The port was then instilled with 3000 units of heparin. The deep dermal layer was then closed with interrupted 3-0 Vicryl stitches. The skin incisions were closed with 4-0 Monocryl subcuticular stitches and skin glue. Intraoperative chest x-ray did show good positioning of the port, without evidence of pneumothorax. At the end of the case, all sponge, instrument, sharp counts were correct 2. The patient was awoken from anesthesia and taken to PACU in stable condition.
[2018-08-28 09:48] VITALS: BP 133/65
== END 2018-08-28 05:52 | disposition home or self-care (01) ==
LOC: OR 05:51
PROVIDERS: ATTEND Surgery
DX: C50.911 Malignant neoplasm of unspecified site of right female breast (principal); I10 Essential (primary) hypertension; E11.9 Type 2 diabetes mellitus without complications; E78.5 Hyperlipidemia, unspecified; E78.00 Pure hypercholesterolemia, unspecified; E66.9 Obesity, unspecified; M19.90 Unspecified osteoarthritis, unspecified site; Z72.89 Other problems related to lifestyle; Z98.890 Other specified postprocedural states; Z79.899 Other long term (current) drug therapy; Z79.82 Long term (current) use of aspirin; Z79.84 Long term (current) use of oral hypoglycemic drugs; Z96.651 Presence of right artificial knee joint; Z90.49 Acquired absence of other specified parts of digestive tract; Z68.32 Body mass index [BMI] 32.0-32.9, adult; Z88.8 Allergy status to other drugs, medicaments and biological substances
CPT/HCPCS: 36561; 77001; 82962; C1788; J0690; J1644; J1885; J2250; J2405; J2704; J3010; J7120

== ENCOUNTER 2018-08-29 07:49 | Outpatient (CLI) | payer BC ==
--- NOTE | 2018-08-30 08:50 | PET Report ---
PET/CT:08/29/18 07:49:00 CLINICAL: Breast cancer restaging. RADIOPHARMACEUTICAL: 12.738mCi F18-FDG. COMPARISON: MRI breast 06/04/18. No previous PET/CT TECHNIQUE- Following intravenous injection of F-18 FDG and an approximately 60 minute uptake period, CT and PET images from the mid skull to the upper thighs were acquired with the patient in the fasted state. No contrast was administered. The CT protocol used for this PET CT study is designed for attenuation correction and anatomic localization of PET abnormalities. This sexual assault counselor CT is not desired to produce and cannot replace, gixbl-sx-fuo-art diagnostic CT scans with specific imaging protocols for different body parts and indications. Plasma glucose at the time of this test: 116g/dl. The standardized uptake values (SUV) are normalized to patient body weight and indicate the highest activity concentration (SUV max) in a given disease site. FINDINGS: Brain--Physiologic FDG uptake in the visualized regions of the brain. Neck--Focal FDG uptake in the left thyroid lobe with SUV 8.2. No identifiable nodule or mass on CT. The thyroid is normal size. Physiologic FDG uptake in mucosal structures. No mass or lymphadenopathy. Chest--Physiologic FDG uptake in mediastinal blood pool and myocardium. Status post right mastectomy. No chest wall mass. Surgical clips in the right axilla. No abnormal FDG uptake in the left breast. A left Kikkao-p-Grek with the tip in the SVC. Lungs--No abnormal uptake. No pulmonary nodule or mass. Pleura/pericardium--No abnormal uptake. Thoracic nodes--No abnormal uptake. Hepatobiliary--No abnormal uptake. Liver background SUV mean, as a reference for comparing FDG studies, is 4.4 . No liver mass. Spleen--No abnormal uptake. Pancreas--No abnormal uptake. Adrenal Glands--No abnormal uptake. Kidneys/Ureters/Bladder--No abnormal uptake. Abdominopelvic Nodes--No abnormal uptake. Bowel/Peritoneum/Mesentery--No abnormal uptake. Pelvic organs--No abnormal uptake. Bones/Soft Tissues--Focal FDG uptake in the medial cortex of the right humeral neck with SUV 3.3. However, no lesion is identified on CT. IMPRESSION- 1. Focal left thyroid FDG uptake of uncertain significance. Recommend thyroid ultrasound for correlation. 2. Focal FDG uptake of the right humeral neck with no lesion identified by CT. Recommend further workup with x-rays of the right shoulder and followup with CT and/or MRI. 3. No evidence of pulmonary, tova or hepatic metastasis.
== END 2018-08-29 07:50 | disposition home or self-care (01) ==
LOC: PET 07:49
PROVIDERS: ATTEND Internal Medicine Hematology & Oncology
DX: C50.111 Malignant neoplasm of central portion of right female breast (principal); E11.9 Type 2 diabetes mellitus without complications; I10 Essential (primary) hypertension; E78.5 Hyperlipidemia, unspecified; E78.00 Pure hypercholesterolemia, unspecified; E66.9 Obesity, unspecified
CPT/HCPCS: 78815; 82962; A9552

== ENCOUNTER 2018-09-04 12:40 | Outpatient (CLI) | payer BC ==
--- NOTE | 2018-09-04 13:13 | XRay Report ---
RIGHT HUMERUS RADIOGRAPHS INDICATION: Malignant neoplasm of the central portion of right female breast. COMPARISON: None similar. FINDINGS: AP and lateral right humerus radiographs demonstrate intact bones, included joints and soft tissues. Possible osteopenia. Few right axillary surgical clips. CONCLUSION: No acute right humerus radiographic abnormality with few other findings, as described. Thank you for the opportunity to participate in this patient's care.
== END 2018-09-04 12:41 | disposition home or self-care (01) ==
LOC: XRAY 12:40
PROVIDERS: ATTEND Internal Medicine Hematology & Oncology
DX: C50.511 Malignant neoplasm of lower-outer quadrant of right female breast (principal); E11.9 Type 2 diabetes mellitus without complications; I10 Essential (primary) hypertension; E78.5 Hyperlipidemia, unspecified; E78.00 Pure hypercholesterolemia, unspecified; E66.9 Obesity, unspecified

== ENCOUNTER 2020-02-04 11:34 | Outpatient (CLI) | payer BC ==
[2020-02-04 12:26] LABS: Blood Urea Nitrogen 15 mg/dL (7-17)
--- NOTE | 2020-02-04 15:52 | Cat Scan Report ---
CT chest w con HISTORY: BREAST CANCER COMPARISON: None TECHNIQUE: Chest CT exam. All CT scans at this location are performed using CT dose reduction for ALA RA by means of automated exposure control. FINDINGS: CT CHEST: Lungs: No significant abnormality. Trachea and Bronchi: No significant abnormality. Mediastinum: No Lymphadenopathy. Heart: No significant abnormality. Vasculature: No significant abnormality. Lymphatics: No lymphadenopathy. Osseous Structures: No aggressive appearing osseous lesions. There is a scoliotic curvature of the th oracic spine. Additional Findings: Postoperative changes from right mastectomy and axillary dissection. Scarring in the postoperative bed. No suspicious mass. Left port terminates in the right atrium. IMPRESSION: 1. No evidence of metastatic disease within the chest. Signer Name: Naveen Jacinto MD Signed: 02/04/2020 3:48 PM Workstation Name: [id number]
--- NOTE | 2020-02-04 17:46 | Cat Scan Report ---
CT abdomen pelvis w con INDICATION: BREAST CANCER. TECHNIQUE: All CT scans at this location are performed using CT dose reduction for ALARA by means of automated e xposure control. COMPARISON: None available. FINDINGS: Cholecystectomy. Liver, spleen, pancreas, kidneys and adrenals are negative. Abdominal aorta is meagan l in size. No adenopathy. Pelvis Normal appendix. Urinary bladder and uterus appear grossly negative. No pelvic adenopathy, free fluid or inflammation. There is a sclerotic lesion in the left pelvis, immediately adjacent to the acetabulum. A much smalle r and less prominent area of sclerosis is demonstrated in the left body/pedicle of L4. IMPRESSION: 1. Sclerotic lesions in the left pelvis and L4, as described. With the given history, I cannot exclud e skeletal metastasis. The left pelvic lesion is accessible to percutaneous biopsy. Signer Name: Eduard Cook MD Signed: 02/04/2020 5:42 PM Workstation Name: [id number]
== END 2020-02-04 11:35 | disposition home or self-care (01) ==
LOC: CT 11:34
PROVIDERS: ATTEND Internal Medicine Hematology & Oncology
DX: R19.07 Generalized intra-abdominal and pelvic swelling, mass and lump (principal); C50.111 Malignant neoplasm of central portion of right female breast; E11.9 Type 2 diabetes mellitus without complications; Z90.49 Acquired absence of other specified parts of digestive tract
CPT/HCPCS: 36415; 71260; 74177; 82565; 84520; Q9967

== ENCOUNTER 2020-03-26 08:24 | Day surgery (SDC) | payer BC ==
[2020-03-26] MEDS ORDERED: ONDANSETRON 4 MG/2 ML INJ IV ONE (09:12)
[2020-03-26] MEDS ORDERED: HYDROmorphone 1 MG/1 ML INJ IV ONE (09:12)
[2020-03-26 11:55] VITALS: BP 150/83
--- NOTE | 2020-03-26 11:58 | Procedure Note ---
Date of procedure: 03/26/20 Pre-op diagnosis: Bone lesion L hip Post-op diagnosis: same Procedure: CT-guided L hip bone lesion biopsy. Findings: See report in PACS. Anesthesia: local Surgeon: CRISTY YUAN Estimated blood loss: minimal Pathology: list (surgical pathology) Specimen disposition: to lab Condition: stable Disposition: same day
--- NOTE | 2020-03-26 12:21 | Cat Scan Report ---
CT-guided left acetabular lesion biopsy INDICATION : Breast cancer patient with bone lesion along the left acetabular roof, here for biopsy. COMPARISON: CT abdomen/pelvis from 02/04/2020 PROCEDURE: The risks (including but not limited to bleeding and infection) and benefits were explain ed to the patient and informed consent was obtained. All CT scans at this location are performed usi ng CT dose reduction for ALARA by means of automated exposure control. A time out procedure was performed. The procedure site was prepped and draped in the usual sterile f ashion and lidocaine was used for local anesthesia. Under CT guidance and utilizing a left lateral oblique approach, and on control 12-gauge biopsy needl e was advanced to the peripheral margin of the osteoblastic lesion in the left acetabular roof. There are stylette was removed and then a 2 cm biopsy sample was obtained. The needle apparatus was remove d, direct pressure applied to maintain hemostasis, and immediate postprocedure scan showed no complic ation. Sample was placed in formalin and sent to the lab for further evaluation. The patient tolerated the procedure well with no complications. IMPRESSION: Successful left acetabular roof bone lesion biopsy. Signer Name: Berny Norris MD Signed: 03/26/2020 12:17 PM Workstation Name: [id number]
== END 2020-03-26 12:30 | disposition home or self-care (01) ==
LOC: CATHLABREC 08:24 → EDSTATUS 08:30 → CATHLABREC 12:30
PROVIDERS: ATTEND Internal Medicine Hematology & Oncology
DX: C50.111 Malignant neoplasm of central portion of right female breast (principal); M89.8X8 Other specified disorders of bone, other site; I10 Essential (primary) hypertension; E78.5 Hyperlipidemia, unspecified; E11.9 Type 2 diabetes mellitus without complications; E78.00 Pure hypercholesterolemia, unspecified; E66.9 Obesity, unspecified; M19.90 Unspecified osteoarthritis, unspecified site; Z98.890 Other specified postprocedural states; Z79.899 Other long term (current) drug therapy; Z79.82 Long term (current) use of aspirin; Z79.84 Long term (current) use of oral hypoglycemic drugs; Z96.659 Presence of unspecified artificial knee joint; Z90.49 Acquired absence of other specified parts of digestive tract; Z68.31 Body mass index [BMI] 31.0-31.9, adult
CPT/HCPCS: 20220; 77012; 88307; 88342; J1170; J2405; 96374; 96375

== ENCOUNTER 2020-05-03 13:04 | Outpatient (CLI) | payer BC ==
--- NOTE | 2020-05-03 17:12 | Mammography Report ---
DIGITAL SCREENING MAMMOGRAM WITH CAD, 05/03/2020 CLINICAL INFORMATION / INDICATION: Routine screening mammography. TECHNIQUE: Digital left 2D mammography was obtained in the craniocaudal and mediolateral oblique pro jections. This examination was interpreted with the benefit of Computer-Aided Detection analysis. COMPARISON: 04/28/2019, 05/02/2018 FINDINGS: Breast Density: The breast is heterogeneously dense, which may obscure small masses. No dominant mass, suspicious calcifications, or architectural distortion in the left breast. IMPRESSION: No mammographic evidence of malignancy. Follow up recommendation: Routine yearly BI-RADS Category 1: Negative. A "normal" or negative report should not discourage follow up or biopsy of a clinically significant f inding. A written summary of these findings will be mailed to the patient. The patient will be entered into a mammography reporting system which will generate a reminder letter for the patient's next appointmen t at the appropriate interval. The [employer] recommends yearly mammograms starting at age 40 and continuing as l gladis as a woman is in good health. Breast MRI is recommended for women with an approximate 20-25% or greater lifetime risk of breast cancer, including women with a strong family history of breast or ova manju cancer or who have been treated for Hodgkin's disease. Signer Name: Sony Adams MD Signed: 05/03/2020 5:08 PM Workstation Name: [id number]
== END 2020-05-03 13:05 | disposition home or self-care (01) ==
LOC: SPVWC 13:04
PROVIDERS: ATTEND Surgery
DX: Z12.31 Encounter for screening mammogram for malignant neoplasm of breast (principal); N64.89 Other specified disorders of breast

== ENCOUNTER 2020-05-19 08:57 | Outpatient (CLI) | payer BC ==
--- NOTE | 2020-05-19 11:35 | Magnetic Resonance Report ---
Bilateral breast MR without and with contrast. History: Personal history of right breast malignancy status post right mastectomy, abnormality noted in the left breast on prior MRI. Comparison: 05/03/2020, 06/04/2018 Technique: Multiplanar multisequence MR images of the breast were obtained before and after the intra venous administration of intravenous contrast. Post processing analysis and review was performed on a separate computer workstation. Findings: Breast composition is heterogeneously dense. There is mild background parenchymal enhancement within the left breast. The patient is status post right mastectomy. A few small scattered low level enhancing foci within the left breast are present. There is no discre te enhancing mass, dominant focus, or other abnormal enhancement. Specifically, the previously noted subcentimeter masses noted at the 12:00 position within the left breast on prior MRI are not present on the current exam. Left chest Port-A-Cath is present with artifact obscuring portions of the left s uperior posterior breast. No abnormal enhancement at the right mastectomy site. No abnormal axillary or internal mammary lymph nodes. Impression: No evidence of breast malignancy status post right breast mastectomy. Specifically, no abnormal enhan cement is identified within the left breast at the 12:00 position at site of abnormal enhancement not ed on prior MRI. BIRADS 2: Benign A normal MRI does not exclude the presence of some forms of breast malignancy as literature reports s uggest that some forms of ductal carcinoma in situ or lobular carcinoma, particularly, may not be det ected on MRI. The sensitivity and specificity of MRI for cancers under 5 mm may be reduced. MRI does not replace the recommendation for annual conventional mammographic evaluation and should be used as an adjunct to mammography and physical examination as necessary. Signer Name: Enrique Baptiste MD Signed: 05/19/2020 11:30 AM Workstation Name: [id number]
== END 2020-05-19 08:58 | disposition home or self-care (01) ==
LOC: SPVIMAG 08:57
PROVIDERS: ATTEND Surgery
DX: Z12.31 Encounter for screening mammogram for malignant neoplasm of breast (principal); Z85.3 Personal history of malignant neoplasm of breast
CPT/HCPCS: A9577; C8908; 77049

== ENCOUNTER 2021-05-11 13:41 | Outpatient (CLI) | payer BC ==
--- NOTE | 2021-05-12 09:00 | Mammography Report ---
DIGITAL SCREENING MAMMOGRAM WITH CAD, 05/11/2021 CLINICAL INFORMATION / INDICATION: Routine screening mammography. Z12.31 TECHNIQUE: Digital left 2D mammography was obtained in the craniocaudal and mediolateral oblique pro jections. This examination was interpreted with the benefit of Computer-Aided Detection analysis. COMPARISON: Prior mammogram 05/03/2020 and 04/28/2019 FINDINGS: Breast Density: The breasts are heterogeneously dense, which may obscure small masses. No dominant mass, suspicious calcifications, or architectural distortion in the left breast. There has been no significant change compared with the prior examinations. IMPRESSION: No mammographic evidence of malignancy. Follow up recommendation: Routine yearly BI-RADS Category 1: NEGATIVE A "normal" or negative report should not discourage follow up or biopsy of a clinically significant f inding. A written summary of these findings will be mailed to the patient. The patient will be entered into a mammography reporting system which will generate a reminder letter for the patient's next appointmen t at the appropriate interval. The [employer] recommends yearly mammograms starting at age 40 and continuing as l gladis as a woman is in good health. Breast MRI is recommended for women with an approximate 20-25% or greater lifetime risk of breast cancer, including women with a strong family history of breast or ova manju cancer or who have been treated for Hodgkin's disease. Signer Name: Janene Ford MD Signed: 05/12/2021 8:56 AM Workstation Name: [id number]
== END 2021-05-11 13:42 | disposition home or self-care (01) ==
LOC: MAMMO 13:41
PROVIDERS: ATTEND Internal Medicine Hematology & Oncology
DX: Z12.31 Encounter for screening mammogram for malignant neoplasm of breast (principal)

== ENCOUNTER 2021-09-15 13:45 | Outpatient (CLI) | payer BC ==
--- NOTE | 2021-09-15 16:21 | Mammography Report ---
DEXA BONE DENSITY SCAN INDICATION / CLINICAL INFORMATION: C50.111. 66 years Female COMPARISON: 11/05/2019 LUMBAR SPINE, L1-L4: - Bone mineral density (BMD) = 0.674 g/cm2. - T-score = -3.4 - Change (%) since most recent prior (if available): 5.1% increase LEFT HIP, NECK : - Bone mineral density (BMD) = 0.694 g/cm2. - T-score = -1.4 - Change (%) since most recent prior (if available): 7.7% decrease IMPRESSION: 1. WHO Classification: Osteoporosis. Fracture Risk: High. 2. 10-Year Fracture Risk (FRAX) = Major Osteoporotic Not reported.% / Hip: Not reported.% FRAX generally not reported for patients with normal or osteoporotic BMD, in yao-nnlekzl-poifylw esmer ents younger than age 50, or in patients undergoing pharmacotherapy BMD Reporting Guidelines (ISCD, 2015) BMD Reporting in Postmenopausal Women and in Men Age 50 and Older - T-scores are preferred. - The WHO densitometric classification is applicable. BMD Reporting in Females Prior to Menopause and in Males Younger Than Age 50 - Z-scores, not T-scores, are preferred. This is particularly important in children. - A Z-score of -2.0 or lower is defined as below the expected range for age, and a Z-score above -2.0 is within the expected range for age. - Osteoporosis cannot be diagnosed in men under age 50 on the basis of BMD alone. - The WHO diagnostic criteria may be applied to women in the menopausal transition. http://www.iscd.org/official-positions/3602-gnbn-ozymtfut-positions-adult/ Signer Name: Clay Robles MD Signed: 09/15/2021 4:05 PM Workstation Name: [id number]
== END 2021-09-15 13:46 | disposition home or self-care (01) ==
LOC: MAMMO 13:45
PROVIDERS: ATTEND Internal Medicine Hematology & Oncology
DX: M81.0 Age-related osteoporosis without current pathological fracture (principal); C50.111 Malignant neoplasm of central portion of right female breast
CPT/HCPCS: 77080